=== PATIENT | female | born 1945 | race Caucasian/White ===

== ENCOUNTER 2024-06-16 15:11 | Emergency (ER) | payer MEDICARE, BC ==
[~2024-06-16] VITALS: Ht 165.1 cm; Wt 79.4 kg
[2024-06-16 18:15] VITALS: PULSE 52; RESP 18; TEMP 97.8; O2SAT 98
[2024-06-16] MEDS ORDERED: ULTRAM 50MG50 MG PO (18:26)
== END 2024-06-16 18:50 | disposition home or self-care (01) ==
LOC: ER 16:31
DX: S42.211A Unspecified displaced fracture of surgical neck of right humerus, initial encounter for closed fracture (principal); M25.521 Pain in right elbow; M25.551 Pain in right hip; W06.XXXA Fall from bed, initial encounter; Y92.89 Other specified places as the place of occurrence of the external cause; I10 Essential (primary) hypertension; E11.9 Type 2 diabetes mellitus without complications; E78.5 Hyperlipidemia, unspecified
CPT/HCPCS: 99283